=== PATIENT | female | born 1965 | race Caucasian/White ===

== ENCOUNTER 2019-03-10 08:37 | Emergency (ER) | payer OTHER ==
[2019-03-10 09:01] VITALS: BP 105/67
--- NOTE | 2019-03-10 09:25 | UC ---
Complaint Female HPI - HPI Summary HPI Summary: urinary pain and burning and incontinence for 3-4 weeks---no specific fever but has felt poorly-no vomiting does get twinges of pain left side of back - History Of Current Complaint Chief Complaint: UCGU Stated Complaint: UTI SYMPTOMS Time Seen by Provider: 03/10/19 09:02 Hx Obtained From: Patient Hx Last Menstrual Period: n/a ?: No Onset/Duration: Gradual Onset, Lasting Weeks - 3-4, Still Present Timing: Constant Severity Initially: Moderate Severity Currently: Moderate Pain Intensity: 5 Pain Scale Used: 0-10 Numeric Character: Sharp, Burning, Cramping Aggravating Factor(s): Urination Alleviating Factor(s): Nothing Associated Signs And Symptoms: Positive: Back Pain - on occasion - Allergies/Home Medications Allergies/Adverse Reactions: Allergies Allergy/AdvReac Type Severity Reaction Status Date / Time bacitracin Allergy Rash Verified 03/10/19 09:02 [From Neosporin ([id number])] doxycycline Allergy Rash Verified 03/10/19 09:02 neomycin Allergy Rash Verified 03/10/19 09:02 [From Neosporin ([id number])] polymyxin B Allergy Rash Verified 03/10/19 09:02 [From Neosporin ([id number])] Home Medications: Home Medications Acetaminophen TAB* [Tylenol TAB*] 325 mg PO BID PRN 03/10/19 [History Confirmed 03/10/19] Levothyroxine TAB* [Synthorid 112 MCG TAB*] 112 mcg PO DAILY 03/10/19 [History Confirmed 03/10/19] PMH/Surg Hx/FS Hx/Imm Hx Endocrine History: Hypothyroidism Cancer History: Other Other Cancer History: thyroid - Surgical History Surgical History: Yes Surgery Procedure, Year, and Place: thyroid removal age 24yrs, [place] - Family History Known Family History: Positive: None - Social History Occupation: Employed Full-time Lives: With Family Alcohol Use: Occasionally Substance Use Type: None Smoking Status (MU): Former Smoker Review of Systems All Other Systems Reviewed And Are Negative: Yes Constitutional: Positive: Fever - "mireya" Skin: Positive: Negative Eyes: Positive: Negative ENT: Positive: Negative Respiratory: Positive: Negative Cardiovascular: Positive: Negative Gastrointestinal: Positive: Abdominal Pain Genitourinary: Positive: Dysuria, Frequency, Urgency Motor: Positive: Negative Neurovascular: Positive: Negative Musculoskeletal: Positive: Negative Neurological: Positive: Negative Psychological: Positive: Negative Is Patient Immunocompromised?: No Physical Exam Triage Information Reviewed: Yes Appearance: Well-Appearing, No Pain Distress, Well-Nourished Vital Signs: Initial Vital Signs Temp 98.4 F 03/10/19 08:54 Pulse 84 03/10/19 08:54 Resp 18 03/10/19 08:54 BP 105/67 03/10/19 08:54 Pulse Ox 99 03/10/19 08:54 Vital Signs Reviewed: Yes Eye Exam: Normal Eyes: Positive: Conjunctiva Clear ENT Exam: Normal ENT: Positive: Normal ENT inspection, Hearing grossly normal. Negative: Trismus , Muffled voice, Hoarse voice Dental Exam: Normal Neck exam: Normal Neck: Positive: Supple, Nontender Respiratory Exam: Normal Respiratory: Positive: Chest non-tender, No respiratory distress, No accessory muscle use Cardiovascular Exam: Normal Cardiovascular: Positive: RRR, Pulses Normal, Brisk Capillary Refill Abdominal Exam: Normal Abdomen Description: Positive: No Organomegaly, Soft. Negative: CVA Tenderness (R), CVA Tenderness (L) Bowel Sounds: Positive: Present Musculoskeletal Exam: Normal Musculoskeletal: Positive: Strength Intact, ROM Intact, No Edema Neurological Exam: Normal Neurological: Positive: Alert, Muscle Tone Normal Psychological Exam: Normal Skin Exam: Normal Diagnostics - Laboratory Lab Results: +nitrites, +leukesterace, blood Complaint Female Dx - Course Course Of Treatment: increase fluids, tylenol/ibuprofen for pain, bactrim and prn pyridium follow with pcp to ED for fever nausea /continued back pain - Differential Dx/Diagnosis Provider Diagnosis: UTI (urinary tract infection) Discharge ED - Sign-Out/Discharge Documenting (check all that apply): Patient Departure All imaging exams completed and their final reports reviewed: No Studies - Discharge Plan Condition: Stable Disposition: HOME Prescriptions: Phenazopyridine TAB* [Pyridium 100 mg TAB*] 100 mg PO TID PRN #9 tab PRN Reason: urinary pain Sulfamethox/Trimethoprim DS* [Bactrim DS 800/160 TAB*] 1 tab PO BID #14 tab Patient Education Materials: Phenazopyridine (By mouth), Urinary Tract Infection in Women (DC) Referrals: Osbaldo Topete MD [Primary Care Provider] - 3 Days - Billing Disposition and Condition Condition: STABLE Disposition: Home
== END 2019-03-10 09:33 | disposition home or self-care (01) ==
LOC: UCCORT 08:37
DX: N39.0 Urinary tract infection, site not specified (principal); E89.0 Postprocedural hypothyroidism; Z79.890 Hormone replacement therapy; Z88.1 Allergy status to other antibiotic agents; Z87.891 Personal history of nicotine dependence
CPT/HCPCS: 81003; 87077; 87086; 87186; 99212; G0463

== ENCOUNTER 2019-03-19 10:19 | Emergency (ER) | payer OTHER ==
--- NOTE | 2019-03-19 10:58 | UC ---
Abdominal Pain Female HPI - HPI Summary HPI Summary: Patient is a 53yo female presenting with LLQ pain and abdominal fullness x2 days. Describes pain as "just constant" and worse with sitting position. Somewhat relieved when lying down and standing. Also notes feeling of "slight constipation" but notes still having BMs. States BMs have been smaller and looser the past two days. Notes lower abdominal pressure like when she had a UTI on 03/10. States UTI symptoms when away. Denies blood in the stool. Denies radiating pain. Denies n/v. Notes decreased appetite. Denies h/o GI disorders. - History of Current Complaint Chief Complaint: UCAbdominalPain Stated Complaint: URINARY RECHECK Hx Obtained From: Patient Hx Last Menstrual Period: n/a Onset/Duration: Gradual Onset, Lasting Days Severity Currently: Moderate Pain Intensity: 4 Pain Scale Used: 0-10 Numeric Allergies/Adverse Reactions: Allergies Allergy/AdvReac Type Severity Reaction Status Date / Time bacitracin Allergy Rash Verified 03/19/19 10:30 [From Neosporin ([id number])] doxycycline Allergy Rash Verified 03/19/19 10:30 neomycin Allergy Rash Verified 03/19/19 10:30 [From Neosporin ([id number])] polymyxin B Allergy Rash Verified 03/19/19 10:30 [From Neosporin ([id number])] PMH/Surg Hx/FS Hx/Imm Hx Endocrine History: Hypothyroidism - Surgical History Surgical History: Yes Surgery Procedure, Year, and Place: thyroid removal age 24yrs, [place] - Family History Known Family History: Positive: None - Social History Alcohol Use: Occasionally Substance Use Type: None Smoking Status (MU): Former Smoker Review of Systems All Other Systems Reviewed And Are Negative: Yes Constitutional: Positive: Chills. Negative: Fever, Fatigue Respiratory: Positive: Negative Cardiovascular: Positive: Negative Gastrointestinal: Positive: Abdominal Pain - LLQ, Other - lower abdominal fullness. Negative: Vomiting, Diarrhea, Nausea Genitourinary: Positive: Negative Neurological: Positive: Negative Physical Exam Triage Information Reviewed: Yes Appearance: Well-Nourished, Pain Distress Vital Signs: Initial Vital Signs Temp 97 F 03/19/19 10:31 Pulse 95 03/19/19 10:31 Resp 16 03/19/19 10:31 BP 106/77 03/19/19 10:31 Pulse Ox 96 03/19/19 10:31 Vital Signs Reviewed: Yes Eyes: Positive: Conjunctiva Clear ENT: Positive: Hearing grossly normal Neck: Positive: Supple Respiratory Exam: Normal Respiratory: Positive: Lungs clear, Normal breath sounds, No respiratory distress Cardiovascular Exam: Normal Cardiovascular: Positive: RRR Abdomen Description: Positive: Soft, Distended. Negative: Nontender - LLQ pain on palpation, CVA Tenderness (R), CVA Tenderness (L), Guarding, McBurney's Point Tenderness Bowel Sounds: Positive: Present, Hypoactive Neurological: Positive: Alert Psychological: Positive: Age Appropriate Behavior Skin Exam: Normal Diagnostics - Radiology CT ABD/PEL Radiology Interpretation Completed By: Radiologist Summary of Radiographic Findings: IMPRESSION: 1. THERE IS A MODERATE AMOUNT OF ASCITES. 2. THERE IS MUCOSAL THICKENING OF SMALL BOWEL WITH INFLAMMATORY CHANGES OF THE MESENTERIC FAT. 3. WHILE THIS MAY REPRESENT AN INFLAMMATORY PROCESS OF THE SMALL BOWEL, PERITONEAL IMPLANTATION IN THE SETTING OF NEOPLASM IS ALSO WITHIN THE DIFFERENTIAL. RECOMMEND CONSIDERATION OF FURTHER EVALUATION WITH CONTRAST-ENHANCED CT OF THE ABDOMEN AND PELVIS. 4. PLEURAL-BASED NODULES OF THE LEFT LOWER LOBE MEASURING UP TO 0.5 CM. RECOMMEND CONSIDERATION OF DEDICATED IMAGING OF THE CHEST. Abd Pain Female Course/Dx - Course Course Of Treatment: Discussed finding of ascites and possible inflammatory process with the patient. Informed her that she requires further lab work and imaging that cannot be done in the urgent care. I recommended the patient go straight to the Emergency Room after leaving here. Patient voiced understanding and agreed to take herself there. Patient stable and in NAD upon departure. - Differential Dx/Diagnosis Provider Diagnosis: Abdominal pain, LLQ, Ascites Discharge ED - Sign-Out/Discharge Documenting (check all that apply): Patient Departure All imaging exams completed and their final reports reviewed: Yes - Discharge Plan Condition: Stable Disposition: HOME-RECOMMEND TO ED Referrals: Osbaldo Topeet MD [Primary Care Provider] - Additional Instructions: The provider that evaluated you today thinks that you need additional testing that can be completed the emergency department. It is recommended that you go directly to emergency department for further evaluation. This evaluation included blood work or imaging. This testing will be directed and decided by the provider that evaluates you at the emergency department. If pain becomes worse, you feel lightheaded, you have uncontrolled vomiting, or you have any other concerns while you are being driven to emergency department as recommended to pullover and contact 911. - Billing Disposition and Condition Condition: STABLE Disposition: Home-Recommend to ED
[2019-03-19 12:33] VITALS: BP 107/74
== END 2019-03-19 12:48 | disposition home health service (06) ==
LOC: UCCORT 10:19
DX: R10.32 Left lower quadrant pain (principal); R18.8 Other ascites; K63.89 Other specified diseases of intestine; R91.8 Other nonspecific abnormal finding of lung field; Z87.440 Personal history of urinary (tract) infections; Z88.1 Allergy status to other antibiotic agents; Z87.891 Personal history of nicotine dependence
CPT/HCPCS: 74176; 81003; 87086; 99212; G0463